=== PATIENT | male | born 1955 | race Caucasian/White ===

== ENCOUNTER 2018-01-08 08:32 | Emergency (ER) | payer MEDICARE, MEDICAID ==
[~2018-01-08] VITALS: Ht 170.2 cm; Wt 100.0 kg
[2018-01-08] MEDS ORDERED: HYDROcodone/acetaminophen 10/325mg tab PO ONE (08:50)
[2018-01-08] MEDS ORDERED: colchicine 0.6mg tablet PO ONE (08:50)
[2018-01-08] MEDS ORDERED: acetaminophen 325mg tablet PO ONE (09:25)
[2018-01-08] MEDS ORDERED: HYDR-565 PO (09:58)
[2018-01-08] MEDS ORDERED: COLC0.6T69 PO (09:58)
[2018-01-08 10:24] VITALS: BP 116/64
== END 2018-01-08 10:26 | disposition home or self-care (01) ==
LOC: ER 08:36
DX: M25.532 Pain in left wrist (principal); E11.9 Type 2 diabetes mellitus without complications; Z98.890 Other specified postprocedural states; Z79.899 Other long term (current) drug therapy
CPT/HCPCS: 73110; 99284; A4565

== ENCOUNTER 2018-01-28 01:29 | Emergency (ER) | payer MEDICARE, MEDICAID ==
[~2018-01-28] VITALS: Ht 170.2 cm; Wt 100.7 kg
[~2018-01-28 01:29] MED LIST: COLC0.6T69 PO; HYDR-565 PO
[2018-01-28] MEDS ORDERED: lidocaine 1.5% w/epinephrine 1:200,000 10ml vial MPF IJ ONE (02:45)
[2018-01-28] MEDS ORDERED: LIDOcaine 1.5% w/epinephrine 1:200,000 5ml ampul IJ ONE (02:50)
[2018-01-28 03:41] VITALS: BP 149/94
== END 2018-01-28 03:43 | disposition home or self-care (01) ==
LOC: ER 01:30
DX: S01.81XA Laceration without foreign body of other part of head, initial encounter (principal); E11.9 Type 2 diabetes mellitus without complications; Z98.890 Other specified postprocedural states; W19.XXXA Unspecified fall, initial encounter; Y93.89 Activity, other specified; Y92.89 Other specified places as the place of occurrence of the external cause; Y99.8 Other external cause status
CPT/HCPCS: 12013; 99283; A6449; J3490

== ENCOUNTER 2018-02-08 14:30 | Emergency (ER) | payer MEDICARE, MEDICAID ==
[~2018-02-08] VITALS: Ht 170.2 cm; Wt 101.5 kg
[2018-02-08 14:39] VITALS: BP 115/75
== END 2018-02-08 14:55 | disposition home or self-care (01) ==
LOC: ER 14:30
DX: Z48.02 Encounter for removal of sutures (principal); E11.9 Type 2 diabetes mellitus without complications; Z98.890 Other specified postprocedural states; Z79.899 Other long term (current) drug therapy
CPT/HCPCS: 99284

== ENCOUNTER 2018-04-18 07:57 | Day surgery (SDC) | payer MEDICARE, MEDICAID ==
[~2018-04-18] VITALS: Ht 167.6 cm; Wt 92.8 kg
[~2018-04-18 07:57] MED LIST changes: -HYDR-565 PO
[2018-04-18] MEDS ORDERED: normal saline 1000ml 1,000 ML IV PRN (08:25)
[2018-04-18] MEDS ORDERED: GABA800T2 PO (08:27)
[2018-04-18] MEDS ORDERED: METF500T PO (08:27)
[2018-04-18] MEDS ORDERED: DOXA2TAB2 PO (08:27)
[2018-04-18] MEDS ORDERED: ACET-75 PO (08:27)
[2018-04-18] MEDS ORDERED: OMEP40CA37 PO (08:27)
[2018-04-18] MEDS ORDERED: PRAV20TA4 PO (08:27)
[2018-04-18] MEDS ORDERED: BACL10TA PO (08:27)
[2018-04-18 08:49] VITALS: BP 133/85
[2018-04-18] MEDS ORDERED: midazolam 2 mg/2 ml injection IV PRN (09:30)
[2018-04-18] MEDS ORDERED: fentaNYL/PF 50MCG/1 ML 2ML syringe IV PRN (09:30)
[2018-04-18] MEDS ORDERED: heparin sodium, porcine/PF 100unit/ml 5ML syringe ICATH ONE (09:30)
[2018-04-18] MEDS ORDERED: LIDOcaine 1%/PF 5ML 10 MG/ML VIAL SQ ONE (09:30)
[2018-04-18] MEDS ORDERED: midazolam 2 mg/2 ml injection ONE (09:38)
[2018-04-18] MEDS ORDERED: LIDOcaine 1%/PF 5ML 10 MG/ML VIAL ONE (09:38)
[2018-04-18] MEDS ORDERED: heparin sodium, porcine/PF 100unit/ml 5ML syringe ONE (09:38)
[2018-04-18] MEDS ORDERED: fentaNYL/PF 50MCG/1 ML 2ML syringe ONE (09:38)
[2018-04-18 10:57] VITALS: BP 111/78
[2018-04-18 11:15] VITALS: BP 115/82
[2018-04-18 11:30] VITALS: BP 121/80
[2018-04-18 11:45] VITALS: BP 112/76
[2018-04-18 12:00] VITALS: BP 122/70
== END 2018-04-18 12:15 | disposition home or self-care (01) ==
LOC: SSTAY O 07:57
PROVIDERS: ATTEND Radiology Diagnostic Radiology
DX: C15.5 Malignant neoplasm of lower third of esophagus (principal); E11.9 Type 2 diabetes mellitus without complications; I10 Essential (primary) hypertension; E66.9 Obesity, unspecified; M19.90 Unspecified osteoarthritis, unspecified site; K21.9 Gastro-esophageal reflux disease without esophagitis; F32.9 Major depressive disorder, single episode, unspecified; F17.210 Nicotine dependence, cigarettes, uncomplicated; Z72.89 Other problems related to lifestyle; Z96.653 Presence of artificial knee joint, bilateral; Z96.649 Presence of unspecified artificial hip joint; Z68.33 Body mass index [BMI] 33.0-33.9, adult; Z79.84 Long term (current) use of oral hypoglycemic drugs; Z79.891 Long term (current) use of opiate analgesic; Z98.890 Other specified postprocedural states; Z79.899 Other long term (current) drug therapy
CPT/HCPCS: 36561; 76937; 77001; 99152; 99153; A6219; C1788; C1894; J1642; J2001; J2250; J3010; J7030; A4620